=== PATIENT | male | born 1985 | race Caucasian/White ===

== ENCOUNTER → 2016-10-18 | Outpatient (CLI) | payer BC ==
[2016-10-18 08:38] LABS: METHOD OF COLLECTION MASTURBATION; SEMEN TIME OF COLLECTION 742; TYPE OF SPECIMEN CONTAINER STERILE CUP
[2016-10-18 08:39] LABS: SEMEN COLOR GRAY OR GRAY-WHITE (GRY/GRYWHTE); SEMEN VOLUME 2.3 ML (>1.5)
[2016-10-18 12:55] LABS: SPERM VIABILITY STAIN NOT INDICATED % (>58%)
== END | disposition home or self-care (01) ==
LOC: C.LAB 08:16
PROVIDERS: ATTEND Specialist
DX: Z31.41 Encounter for fertility testing (principal)

== ENCOUNTER → 2016-11-07 | Outpatient (CLI) | payer BC | END | disposition home or self-care (01) | LOC: C.LAB1850 08:57 | PROVIDERS: ATTEND Specialist | DX: Z31.441 Encounter for testing of male partner of patient with recurrent pregnancy loss (principal); Z11.3 Encounter for screening for infections with a predominantly sexual mode of transmission; Z11.4 Encounter for screening for human immunodeficiency virus [HIV] ==

== ENCOUNTER → 2016-11-22 | Outpatient (CLI) | payer BC | END | disposition home or self-care (01) | LOC: C.LAB1850 07:37 | PROVIDERS: ATTEND Specialist | DX: Z31.440 Encounter of male for testing for genetic disease carrier status for procreative management (principal) ==